=== PATIENT | female | born 1945 | race Caucasian/White ===

== ENCOUNTER → 2018-05-29 | Outpatient (CLI) | payer MEDICARE ==
[~2018-05-29] MED LIST: ADAL40PEN; AZAT50 PO; BENTYL10 MG PO; CLOBETTC TOP; ERGO400 PO; FISH1000 PO; GABA400 PO; GEMF600 PO; LOPE2C PO; MULTI VITAMIN1 EACH PO; Metformin HCl1000 MG PO; Mobic15 MG PO; Naproxen250 MG PO; ONDA4ODT SL; PRED20 PO; Pravastatin Sod40 MG PO; Prinivil10 MG PO; SITA100T2 PO
== END | disposition home or self-care (01) ==
LOC: LAB SHORT 15:53 → PLD 15:53
DX: L60.2 Onychogryphosis (principal); B35.1 Tinea unguium
CPT/HCPCS: 88305; 88312

== ENCOUNTER → 2020-01-27 | Outpatient (CLI) | payer MEDICARE ==
[~2020-01-27] MED LIST changes: +HYDR1TAB94 PO; +STELARA90 MG/1 ML SQ
[2020-01-28 12:38] LABS: Percent Saturation 16.9 % (15.0-50.0)
== END | disposition home or self-care (01) ==
LOC: LAB 18:30
PROVIDERS: Internal Medicine Hematology & Oncology
DX: D72.829 Elevated white blood cell count, unspecified (principal); D50.9 Iron deficiency anemia, unspecified
CPT/HCPCS: 82728; 83540; 83550

== ENCOUNTER 2020-02-26 11:16 | Emergency (ER) | payer MEDICARE ==
[~2020-02-26] VITALS: Ht 167.6 cm; Wt 111.1 kg
[~2020-02-26 11:16] MED LIST changes: -HYDR1TAB94 PO; -STELARA90 MG/1 ML SQ
[2020-02-26 12:14] LABS: BASOPHILS ABSOLUTE AUTO 0.09 K/mm3 (0.00-0.23); BASOPHILS PERCENT AUTO 1 % (0-2); EOSINOPHILS ABSOLUTE AUTO 0.17 K/mm3 (0.00-0.68); EOSINOPHILS PERCENT AUTO 1 % (0-6); Hematocrit 41.5 % (33.0-51.0); Hemoglobin 13.2 g/dL (11.5-16.0); Mean Corpuscular HGB 29.7 pg (26.0-34.0); Mean Corpuscular HGB Conc 31.8 g/dL (31.5-36.5); Mean Corpuscular Volume 93 fL (80-100); Mean Platelet Volume 9.9 fL (9.1-12.4); Platelet Count 296 K/mm3 (150-400); RDW Coefficient Variation 14.5 % (11.7-14.2); RDW Standard Deviation 49.5 fL (35.1-46.3); Red Blood Cell Count 4.45 M/mm3 (3.80-5.20); White Blood Cell Count 19.95 K/mm3 (4.00-11.30)
[2020-02-26 12:16] LABS: IMMATURE GRAN ABSOLUTE AUTO 0.06 K/mm3 (0.00-0.10); IMMATURE GRAN PERCENT AUTO 0 % (0-1); LYMPHOCYTES ABSOLUTE AUTO 8.57 K/mm3 (0.84-5.20); LYMPHOCYTES PERCENT AUTO 43 % (21-46); MONOCYTES ABSOLUTE AUTO 1.43 K/mm3 (0.16-1.47); MONOCYTES PERCENT AUTO 7 % (4-13); NEUTROPHILS ABSOLUTE AUTO 9.63 K/mm3 (1.96-9.15); NEUTROPHILS PERCENT AUTO 48 % (41-73)
[2020-02-26] MEDS ORDERED: STELARA90 MG/1 ML SQ (12:20)
[2020-02-26 12:34] LABS: Alanine Aminotransfer (ALT/SGP 32 U/L (12-78); Albumin, Blood 3.3 g/dL (3.4-5.0); Albumin/Globulin Ratio 0.9 (0.8-1.8); Alk Phos 57 U/L (50-136); Anion Gap 8 mmol/L (6-16); Aspartate Aminotrans (AST/SGOT 18 U/L (12-37); Bilirubin, Total 0.3 mg/dL (0.1-1.0); Blood Urea Nitrogen 23 mg/dL (8-24); Bun/Creatinine Ratio 27.3 (12.0-20.0); CO2, Blood 26 mmol/L (21-32); Chloride, Blood 106 mmol/L (98-108); Creatinine, Blood 0.84 mg/dL (0.40-1.00); Globulin, Blood 3.8 g/dL (2.2-4.0); Glomerular Filtration Rate >60 (60-); Glucose, Blood 232 mg/dL (70-99); Potassium, Blood 3.9 mmol/L (3.5-5.5); Sodium, Blood 140 mmol/L (136-145); Total Protein, Blood 7.1 g/dL (6.4-8.2); Troponin I <0.015 ng/mL (0.000-0.040)
[2020-02-26 12:39] LABS: BASOPHILS PERCENT MAN 0 % (0-2); EOSINOPHILS ABSOLUTE MAN 0.19 K/mm3 (0.00-0.68); EOSINOPHILS PERCENT MAN 1 % (0-6); LYMPHOCYTES ABSOLUTE MAN 8.57 K/mm3 (0.84-5.20); LYMPHOCYTES PERCENT MAN 43 % (21-46); MONOCYTES ABSOLUTE MAN 1.39 K/mm3 (0.16-1.47); MONOCYTES PERCENT MAN 7 % (4-13); NEUTROPHILS ABSOLUTE MAN 9.77 K/mm3 (1.96-9.15); SEG NEUTROPHILS PERCENT MAN 49 % (41-73); TOTAL CELLS COUNTED 100
[2020-02-26] MEDS ORDERED: HYDR1TAB94 PO (15:01)
== END 2020-02-26 15:41 | disposition home or self-care (01) ==
LOC: ER 11:16
PROVIDERS: Physician Assistant
DX: S43.401A Unspecified sprain of right shoulder joint, initial encounter (principal); S93.502A Unspecified sprain of left great toe, initial encounter; Z79.52 Long term (current) use of systemic steroids; Z79.899 Other long term (current) drug therapy; Z79.84 Long term (current) use of oral hypoglycemic drugs
CPT/HCPCS: 36415; 73030; 73630; 80053; 84484; 85025; 93005; 93010; 99285-25; A9270

== ENCOUNTER 2020-10-22 10:19 | Day surgery (SDC) | payer MEDICARE ==
[~2020-10-22 10:19] MED LIST changes: +HYDR1TAB94 PO; +STELARA90 MG/1 ML SQ
== END 2020-10-22 23:13 | disposition home or self-care (01) ==
LOC: ORSCMMR 10:19
DX: Z53.9 Procedure and treatment not carried out, unspecified reason (principal)

== ENCOUNTER 2020-10-25 08:23 | Day surgery (SDC) | payer MEDICARE ==
[~2020-10-25] VITALS: Ht 167.6 cm; Wt 110.8 kg
--- NOTE | 2020-10-25 11:56 | NUR ---
10/25/20 1156 Naty Walker PT. PRESENTS TO OR WITH SOME SIGNIFICANT BRUISING TO INSIDE AND ANTERIOR RIGHT FOREARM AND BICEP
--- NOTE | 2020-10-25 13:52 | NUR ---
PT WITH DRESSING TO R SHOULDER D&I, ARM ALREADY IN A SLING. PT GIVEN SIPS OF ORANGE JUICE AND PO PAIN MEDICATIONS PROVIDED. PT REPOSITION IN BED FOR COMFORT.
--- NOTE | 2020-10-25 15:03 | NUR ---
Patient up to Ambulate independently. Gait steady. Discharge instructions reviewed with patient. Patient verbalizes understanding. Copy given to patient to take home. Discharged via wheelchair to private car for ride home.
== END 2020-10-25 14:55 | disposition home or self-care (01) ==
LOC: ORSCMMR 08:23
PROVIDERS: Orthopaedic Surgery
PROC: 0PSC04Z Reposition Right Humeral Head with Internal Fixation Device, Open Approach (ICD-10-PCS; principal; 2020-10-25 10:45)
DX: S42.211A Unspecified displaced fracture of surgical neck of right humerus, initial encounter for closed fracture (principal); I10 Essential (primary) hypertension; E78.5 Hyperlipidemia, unspecified; Z87.891 Personal history of nicotine dependence; E11.9 Type 2 diabetes mellitus without complications; E66.01 Morbid (severe) obesity due to excess calories; Z68.39 Body mass index [BMI] 39.0-39.9, adult; Z79.84 Long term (current) use of oral hypoglycemic drugs; Z79.899 Other long term (current) drug therapy; Z79.82 Long term (current) use of aspirin
CPT/HCPCS: 82947; A9270; C1713; C1769; J0171; J0690; J1100; J2405; J2704; J3010; J7120

== ENCOUNTER → 2021-12-22 | Outpatient (CLI) | payer MEDICARE ==
[~2021-12-22] MED LIST changes: +DICY20 PO
[2021-12-22 08:17] LABS: Source, Urine Clean Catch
[2021-12-22 12:14] LABS: Appearance, Urine Clear (Clear); Bilirubin, Urine Neg (Neg); Blood, Urine Neg (Neg); Color, Urine Yellow (P-Yellow); Glucose Qualitative, Urine Neg (Neg); Ketones, Urine Neg (Neg); Leukocyte Esterase, Urine Neg (Neg); Nitrite, Urine Neg (Neg); Protein, Urine Neg (Neg); Specific Gravity, Urine 1.015 (1.003-1.022); Urobilinogen, Urine NORM (Normal)
== END | disposition home or self-care (01) ==
LOC: LAB SHORT 08:10 → LAB FUT 09-29 15:30
PROVIDERS: Family Medicine
DX: Z91.89 Other specified personal risk factors, not elsewhere classified (principal)
CPT/HCPCS: 81003

== ENCOUNTER 2023-01-25 22:49 | Emergency (ER) | payer MEDICARE ==
[~2023-01-25] VITALS: Ht 167.6 cm; Wt 108.9 kg
[2023-01-26 02:09] LABS: BASOPHILS ABSOLUTE AUTO 0.06 K/mm3 (0.00-0.23); BASOPHILS PERCENT AUTO 0 % (0-2); EOSINOPHILS ABSOLUTE AUTO 0.02 K/mm3 (0.00-0.68); EOSINOPHILS PERCENT AUTO 0 % (0-6); Hematocrit 47.1 % (33.0-51.0); Hemoglobin 15.4 g/dL (11.5-16.0); IMMATURE GRAN ABSOLUTE AUTO 0.05 K/mm3 (0.00-0.10); IMMATURE GRAN PERCENT AUTO 0 % (0-1); LYMPHOCYTES ABSOLUTE AUTO 2.74 K/mm3 (0.84-5.20); LYMPHOCYTES PERCENT AUTO 20 % (21-46); MONOCYTES ABSOLUTE AUTO 1.36 K/mm3 (0.16-1.47); MONOCYTES PERCENT AUTO 10 % (4-13); Mean Corpuscular HGB 30.2 pg (26.0-34.0); Mean Corpuscular HGB Conc 32.7 g/dL (31.5-36.5); Mean Corpuscular Volume 92 fL (80-100); Mean Platelet Volume 10.1 fL (9.1-12.4); NEUTROPHILS PERCENT AUTO 69 % (41-73); Platelet Count 246 K/mm3 (150-400); RDW Coefficient Variation 14.4 % (11.7-14.2); RDW Standard Deviation 48.9 fL (35.1-46.3); White Blood Cell Count 13.53 K/mm3 (4.00-11.30)
[2023-01-26 02:14] LABS: Albumin, Blood 3.8 g/dL (3.4-5.0); Bilirubin, Total 0.4 mg/dL (0.1-1.0); Bun/Creatinine Ratio 16.8 (12.0-20.0); Creatinine, Blood 1.01 mg/dL (0.40-1.00); Globulin, Blood 3.7 g/dL (2.2-4.0); Potassium, Blood 4.6 mmol/L (3.5-5.5); Total Protein, Blood 7.5 g/dL (6.4-8.2)
[2023-01-26 03:41] LABS: Source, Urine Straight Cath
[2023-01-26 03:52] LABS: Bilirubin, Urine Neg (Neg); Blood, Urine 1+ (Neg); Glucose Qualitative, Urine 4+ (Neg); Ketones, Urine 1+ (Neg); Leukocyte Esterase, Urine Neg (Neg); Nitrite, Urine Pos (Neg); Protein, Urine Neg (Neg); Urobilinogen, Urine NORM (Normal)
[2023-01-26 04:24] LABS: Appearance, Urine Hazy (Clear); Color, Urine Yellow (P-Yellow)
[2023-01-26 04:25] LABS: Bacteria Many /hpf; Red Blood Cells, Urine 0-2 /hpf (0-2); Squamous Epithelial Cells Few /hpf (Few); White Blood Cells, Urine 0-2 /hpf (0-5)
[2023-01-26 05:00] VITALS: BP 108/72
[2023-01-26 05:17] LABS: Magnesium, Blood 1.8 mg/dL (1.6-2.4); Phosphorus, Blood 2.8 mg/dL (2.5-4.9); Thyroid Stimulating Hormone 0.928 uIU/mL (0.360-4.800)
[2023-01-26 05:49] LABS: Influenza A, PCR NEGATIVE (NEGATIVE); Influenza B, PCR NEGATIVE (NEGATIVE); Resp Syncytial Virus, PCR NEGATIVE (NEGATIVE)
[2023-01-26 05:56] LABS: SARS-Cov-2 (COVID-19) PCR, MMC POSITIVE (NEGATIVE)
[2023-01-26] MEDS ORDERED: ACET500 PO (06:07)
== END 2023-01-26 06:39 | disposition home or self-care (01) ==
LOC: ER 22:49
PROVIDERS: Emergency Medicine
DX: U07.1 COVID-19 (principal); E86.0 Dehydration; I10 Essential (primary) hypertension; D63.8 Anemia in other chronic diseases classified elsewhere; E11.40 Type 2 diabetes mellitus with diabetic neuropathy, unspecified; Z79.84 Long term (current) use of oral hypoglycemic drugs; Z79.899 Other long term (current) drug therapy; Z88.5 Allergy status to narcotic agent; W06.XXXA Fall from bed, initial encounter; Y92.003 Bedroom of unspecified non-institutional (private) residence as the place of occurrence of the external cause
CPT/HCPCS: 0241U; 80053; 81001; 83735; 84100; 84443; 85025; 87077; 87086; 87186; 93005; 93010; 99284-25; J7030

== ENCOUNTER → 2024-01-18 | Outpatient (CLI) | payer MEDICARE ==
[~2024-01-18] MED LIST changes: +ACET500 PO
[2024-01-18 16:35] LABS: Alanine Aminotransfer (ALT/SGP 29 U/L (12-78); Albumin, Blood 3.5 g/dL (3.4-5.0); Alk Phos 103 U/L (50-136); Anion Gap 11 mmol/L (3-11); Aspartate Aminotrans (AST/SGOT 13 U/L (12-37); Bilirubin, Total 0.3 mg/dL (0.1-1.0); Blood Urea Nitrogen 20 mg/dL (8-24); Bun/Creatinine Ratio 19.2 (12.0-20.0); CHOL/HDL RATIO 1.8; CO2, Blood 26 mmol/L (21-32); Chloride, Blood 110 mmol/L (98-108); Cholesterol 92 mg/dL (50-200); Creatinine, Blood 1.04 mg/dL (0.40-1.00); Globulin, Blood 3.4 g/dL (2.2-4.0); Glomerular Filtration Rate 55 (60-); Glucose, Blood 228 mg/dL (70-99); HDL Cholesterol 51 mg/dL (>39); LDL/HDL RATIO 0.1; Low Density Lipoprotein Chol 5 mg/dL (0-110); Potassium, Blood 4.7 mmol/L (3.5-5.5); Sodium, Blood 142 mmol/L (136-145); Total Protein, Blood 6.9 g/dL (6.4-8.2); Triglycerides 182 mg/dL (30-160); Very Low Density Lipoprot Chol 36 mg/dL (6-32)
[2024-01-18 16:42] LABS: BASOPHILS PERCENT AUTO 1 % (0-2); EOSINOPHILS ABSOLUTE AUTO 3.54 K/mm3 (0.00-0.68); EOSINOPHILS PERCENT AUTO 19 % (0-6); IMMATURE GRAN ABSOLUTE AUTO 0.04 K/mm3 (0.00-0.10); IMMATURE GRAN PERCENT AUTO 0 % (0-1); LYMPHOCYTES ABSOLUTE AUTO 7.38 K/mm3 (0.84-5.20); LYMPHOCYTES PERCENT AUTO 40 % (21-46); MONOCYTES ABSOLUTE AUTO 0.86 K/mm3 (0.16-1.47); MONOCYTES PERCENT AUTO 5 % (4-13); Mean Corpuscular HGB 30.6 pg (26.0-34.0); Mean Corpuscular HGB Conc 33.3 g/dL (31.5-36.5); Mean Corpuscular Volume 92 fL (80-100); Mean Platelet Volume 10.5 fL (9.1-12.4); NEUTROPHILS ABSOLUTE AUTO 6.77 K/mm3 (1.96-9.15); NEUTROPHILS PERCENT AUTO 36 % (41-73); Platelet Count 281 K/mm3 (150-400); RDW Coefficient Variation 13.9 % (11.7-14.2); RDW Standard Deviation 47.2 fL (35.1-46.3); White Blood Cell Count 18.69 K/mm3 (4.00-11.30)
[2024-01-18 17:09] LABS: Microalb/Creat Ratio UR, Rand 11.733 mg/g (0.000-30.000); Microalbumin, Random Urine 5.28 mg/L (0.000-20.000)
== END ==
LOC: LAB 15:12 → LAB SHORT 15:12
PROVIDERS: Family Medicine
DX: E11.65 Type 2 diabetes mellitus with hyperglycemia (principal); E78.2 Mixed hyperlipidemia; I12.9 Hypertensive chronic kidney disease with stage 1 through stage 4 chronic kidney disease, or unspecified chronic kidney disease
CPT/HCPCS: 80053; 80061; 82043; 82570; 83036; 85025

== ENCOUNTER 2024-02-27 09:01 | Inpatient (IN) | payer OTHER, MEDICARE ==
[~2024-02-27] VITALS: Ht 167.6 cm; Wt 102.4 kg
[2024-02-27] MEDS ORDERED: Prednisone10 MG (09:24)
[2024-02-27] MEDS ORDERED: ATOR20 PO (09:26)
[2024-02-27] MEDS ORDERED: JARDIANCE10 MG PO (09:27)
[2024-02-27] MEDS ORDERED: INVOKANA100 MG PO (09:28)
[2024-02-27] MEDS ORDERED: Lactated Ringer's 1,000 ML IV ONE ×2 (09:45→09:50)
[2024-02-27 10:07] LABS: Hematocrit 45.2 % (33.0-51.0); Mean Corpuscular HGB 30.9 pg (26.0-34.0); Mean Corpuscular HGB Conc 33.2 g/dL (31.5-36.5); Mean Corpuscular Volume 93 fL (80-100); Mean Platelet Volume 9.8 fL (9.1-12.4); Platelet Count 233 K/mm3 (150-400); RDW Coefficient Variation 14.3 % (11.7-14.2); Red Blood Cell Count 4.85 M/mm3 (3.80-5.20); White Blood Cell Count 17.28 K/mm3 (4.00-11.30)
[2024-02-27 10:28] LABS: BASOPHILS PERCENT MAN 0 % (0-2); EOSINOPHILS PERCENT MAN 0 % (0-6); LYMPHOCYTES ABSOLUTE MAN 3.62 K/mm3 (0.84-5.20); LYMPHOCYTES PERCENT MAN 21 % (21-46); MONOCYTES ABSOLUTE MAN 1.03 K/mm3 (0.16-1.47); MONOCYTES PERCENT MAN 6 % (4-13); NEUTROPHILS ABSOLUTE MAN 12.61 K/mm3 (1.96-9.15); SEG NEUTROPHILS PERCENT MAN 73 % (41-73); TOTAL CELLS COUNTED 100
[2024-02-27 10:32] LABS: Albumin, Blood 3.6 g/dL (3.4-5.0); Albumin/Globulin Ratio 0.9 (0.8-1.8); Bilirubin, Total 0.6 mg/dL (0.1-1.0); Bun/Creatinine Ratio 17.6 (12.0-20.0); Calcium, Blood 9.4 mg/dL (8.5-10.1); Creatinine, Blood 1.02 mg/dL (0.40-1.00); Potassium, Blood 4.6 mmol/L (3.5-5.5); Total Protein, Blood 7.6 g/dL (6.4-8.2)
[2024-02-27 12:23] LABS: CORONAVIRUS COVID-19 AG Negative (NEGATIVE); INFLUENZA A AG Negative (NEGATIVE); INFLUENZA B AG Negative (NEGATIVE)
[2024-02-27 12:34] LABS: Source, Urine Straight Cath
[2024-02-27 12:38] LABS: Appearance, Urine Hazy (Clear); Bilirubin, Urine Neg (Neg); Blood, Urine 2+ (Neg); Color, Urine Yellow (P-Yellow); Glucose Qualitative, Urine 4+ (Neg); Ketones, Urine Neg (Neg); Leukocyte Esterase, Urine 1+ (Neg); Nitrite, Urine Neg (Neg); Protein, Urine Neg (Neg); Urobilinogen, Urine NORM (Normal)
[2024-02-27 12:55] LABS: Bacteria Many /hpf; Squamous Epithelial Cells Few /hpf (Few); White Blood Cells, Urine 50-100 /hpf (0-5)
[2024-02-27] MEDS ORDERED: CefTRIAXone Sodium 1,000 MG in NS 50 ML IV ONE (13:10)
[2024-02-27] MEDS ORDERED: NS 1,000 ML IV SCH ×3 (13:20→23:35)
[2024-02-27] MEDS ORDERED: FLU VACC TS2024-25(6MOS UP)/PF 45 MCG/0.5 ML SYRINGE IM SCH (14:40)
[2024-02-27] MEDS ORDERED: Ondansetron HCl 2 MG / ML 2ML Vial IV PRN (14:40)
[2024-02-27] MEDS ORDERED: OxyCODONE HCL 5 MG TAB PO PRN (14:40)
[2024-02-27] MEDS ORDERED: Gabapentin 100 MG Cap PO SCH (15:00)
[2024-02-27] MEDS ORDERED: Empagliflozin 10 MG TAB PO SCH (15:00)
[2024-02-27] MEDS ORDERED: Lisinopril 10 MG Tab PO SCH (15:00)
[2024-02-27] MEDS ORDERED: Insulin Regular 100 UNIT/ML 10ML Vial SC SCH (16:30)
[2024-02-27 18:44] VITALS: BP 176/76
--- NOTE | 2024-02-27 19:37 | NUR ---
ADMISSION: REPORT RECEIVED FORM ED RN. PT TO UNIT AT 1830. A/O, NOTED HTN AND FEVER, WILL MAKE CEFERINO RN AWARE. SENSATION IS INTACT TO R FOOT, WIGGLES TOES, PEDAL PULSE +2. PT ABLE TO TURN AND HELPED ONTO BEDPAN AND VOIDED. PT IS AWARE OF NWB STATUS OF R LEG. PT ORIENTED TO ROOM, AND BEDSIDE REPORT GIVEN TO CEFERINO CHRISTINE RN. CALL LIGHT IN REACH
[2024-02-27] MEDS ORDERED: BENADRYL25 MG (19:54)
[2024-02-27] MEDS ORDERED: CALCIUM 600-D31 EAC2 (19:58)
[2024-02-27] MEDS ORDERED: ONE DAILY WOME1 EAC2 PO (19:59)
[2024-02-27] MEDS ORDERED: Docusate Sodium 100 MG Cap PO SCH (21:00)
[2024-02-27] MEDS ORDERED: Lactobacil 2-S.Thermo-Bifido 1 1 Cap PO SCH (21:00)
[2024-02-27] MEDS ORDERED: Atorvastatin 10 MG Tab PO SCH (21:00)
[2024-02-27] MEDS ORDERED: Sennosides 8.6 MG Tab PO SCH (21:00)
[2024-02-27] MEDS ORDERED: Acetaminophen 500 MG Tab PO PRN (23:35)
--- NOTE | 2024-02-28 04:13 | NUR ---
SHIFT SUMMARY; AFTER ADMISSION, PATIENT WAS ABLE TO SLEEP IN LONG INTERVALS, DID NOT HAVE A LOT OF PAIN IN ANKLE. SHE ALMOST SLIPPED OFF THE BED, WHEN HER LEG BECAME CLOSE TO THE EDGE OF THE BED. BED ALARM NOW ON. TELE ST @ 88. NPO AFTER MIDNIGHT. WAS FEBRILE, HOSPITALIST CONTACTED OR TYLENOL ORDER. PUREWICK WORKING WELL TO MANAGE URINE. IVF NS/100ML/HR ALL NIGHT.
[2024-02-28 04:54] LABS: Hematocrit 39.3 % (33.0-51.0); Hemoglobin 13.1 g/dL (11.5-16.0); Mean Corpuscular HGB 30.5 pg (26.0-34.0); Mean Corpuscular HGB Conc 33.3 g/dL (31.5-36.5); Mean Corpuscular Volume 91 fL (80-100); Mean Platelet Volume 9.8 fL (9.1-12.4); Platelet Count 233 K/mm3 (150-400); RDW Coefficient Variation 14.3 % (11.7-14.2); White Blood Cell Count 15.64 K/mm3 (4.00-11.30)
[2024-02-28 05:15] LABS: BAND PERCENT MAN 2 % (0-8); BASOPHILS PERCENT MAN 0 % (0-2); EOSINOPHILS PERCENT MAN 0 % (0-6); LYMPHOCYTES % ATYPICAL MANUAL 3 % (0-0); LYMPHOCYTES ABSOLUTE MAN 6.25 K/mm3 (0.84-5.20); LYMPHOCYTES PERCENT MAN 37 % (21-46); MONOCYTES ABSOLUTE MAN 0.62 K/mm3 (0.16-1.47); MONOCYTES PERCENT MAN 4 % (4-13); NEUTROPHILS ABSOLUTE MAN 8.75 K/mm3 (1.96-9.15); SEG NEUTROPHILS PERCENT MAN 54 % (41-73); TOTAL CELLS COUNTED 100
[2024-02-28 05:17] LABS: Bun/Creatinine Ratio 18.3 (12.0-20.0); Calcium, Blood 8.6 mg/dL (8.5-10.1); Creatinine, Blood 0.99 mg/dL (0.40-1.00); Potassium, Blood 3.8 mmol/L (3.5-5.5)
[2024-02-28 06:20] VITALS: BP 151/75
[2024-02-28 07:26] VITALS: BP 184/80
[2024-02-28] MEDS ORDERED: Enoxaparin 40 MG/0.4 ML SYR SC SCH (09:00)
[2024-02-28] MEDS ORDERED: CefTRIAXone Sodium 1,000 MG in NS 100 ML IV SCH (09:00)
[2024-02-28] MEDS ORDERED: Loratadine 10 MG Tab PO SCH (09:00)
[2024-02-28] MEDS ORDERED: Cholecalciferol 1000 Unit Tablet (=25MCG) PO SCH (09:00)
[2024-02-28 14:03] VITALS: BP 160/79
--- NOTE | 2024-02-28 15:46 | NUR ---
SHIFT SUMMARY NO ACUTE CHANGES TODAY. DR. SCHROEDER REPORTS R ANKLE IS NON SURGICAL AND PLANS TO PLACE A NEW SPLINT TO THE ANKLE THIS AFTERNOON. PT IS NWB AND IS A 2 PERSON MOD ASSIST TO THE BSC/CHAIR. DENIES PAIN TO R ANKLE UNLESS SHE ACCIDENTALLY BEARS WEIGHT TO IT. IVF + ABX PER ORDERS FOR UTI. YADY CONSISTENT CARB DIET. VSS. PLAN TO TRANSFER TO ROOM 336. REPORT GIVEN TO RECEIVING TIN OROSCO.
[2024-02-28] MEDS ORDERED: Azithromycin 250 MG Tab PO SCH (17:00)
[2024-02-28] MEDS ORDERED: MetFORMIN HCl 500 mg PO SCH (17:00)
[2024-02-28 17:15] VITALS: BP 129/50
--- NOTE | 2024-02-28 18:34 | NUR ---
SHIFT SUMMARY PT A&OX4. PT TRANSFERED FROM SURG FLOOR. PT IS NON WEIGHT BEARING ON R FOOT DUE TO FRACTURE. PT IS A STAND PIVOT WITH FWW AND GB TO [facility] [place] SPLINT. C/D/I. DR. SCHROEDER CAME BY THIS EVENING AND DID A DRESSING CHANGE. PT ON ROOM AIR. PT ON TELE, AND IS SINUS RYTHYM AT 87 BPM. PT IS ON A CORECTION SCALE FOR INSULIN, METFORMIN STARTED TODAY. PT ORIENTED TO ROOM FALL PRECAUTIONS AND CALL LIGHT. VSS. PT ALSO RECEIVING ANTIBIOTICS. FLUIDS RUNNING AT 100ML/HR. PT REPORTS HEADACHE PAIN. MANAGED PER EMAR. PT EATS ADEQUATE, BED IN LOWEST POSITION. CALL LIGHT IN REACH.
[2024-02-28 19:50] VITALS: BP 147/70
[2024-02-29 03:19] VITALS: BP 151/61
[2024-02-29 06:10] LABS: Hematocrit 37.9 % (33.0-51.0); Hemoglobin 12.6 g/dL (11.5-16.0); Mean Corpuscular HGB 30.5 pg (26.0-34.0); Mean Corpuscular HGB Conc 33.2 g/dL (31.5-36.5); Mean Corpuscular Volume 92 fL (80-100); Platelet Count 215 K/mm3 (150-400); RDW Coefficient Variation 14.1 % (11.7-14.2); RDW Standard Deviation 48.3 fL (35.1-46.3); Red Blood Cell Count 4.13 M/mm3 (3.80-5.20); White Blood Cell Count 12.92 K/mm3 (4.00-11.30)
[2024-02-29 06:29] LABS: Bun/Creatinine Ratio 15.4 (12.0-20.0); Calcium, Blood 8.5 mg/dL (8.5-10.1); Creatinine, Blood 1.04 mg/dL (0.40-1.00); Potassium, Blood 4.1 mmol/L (3.5-5.5)
[2024-02-29 07:13] VITALS: BP 137/73
[2024-02-29] MEDS ORDERED: Acetaminophen 325 MG TABLET PO PRN (11:25)
--- NOTE | 2024-02-29 18:39 | NUR ---
SHIFT SUMMARY PT A&OX4. PT HAS R ANKLE FRACTURE. PT IS NON WEIGHT BEARING ON R FOOT DUE TO FRACTURE. PT IS A STAND PIVOT WITH FWW AND GB TO BS. IN SPLINT. C/D/I. PT REPORTS NO PAIN BUT ASKED FOR 2 TYLENOL TO BE AVAILABLE NEEDED, DR. RICH INCREASED TYLENOL. PT ON ROOM AIR. PT ON TELE. PT REPORTS NO CHEST PAIN. VSS. PT ON CORRECTION SCALE FOR INSULIN. PT RECEIVING ANTIBIOTICS. MICRO CAME BACK FOR [place] IN URINE, DR. RICH NOTIFIED. PT HAS REDNESS ON R UNDER BREAST. DR. RICH KNOWS AND ORDERED POWDER. PLAN IS FOR PT TO GO TO [facility] TOMORROW FOR REHAB. NS RUNNING AT 100ML/HR. BED IN LOWEST POSITION, CALL LIGHT IN REACH. PT WAS IN CHAIR 2 HRS DURING SHIFT. PT EATS ADEQUATE.
[2024-02-29 19:54] VITALS: BP 152/69
[2024-02-29] MEDS ORDERED: Miconazole Nitrate 2% 85 GM PWD TOP SCH (21:00)
[2024-03-01 02:52] VITALS: BP 153/82
--- NOTE | 2024-03-01 05:00 | NUR ---
SHIFT SUMMARY: Pt is admitted for right ankle FX and is a limited code. Is alert and able to make needs known. ADLs have been 1p. Pain has been managed with PRN medication. Iv to right wrist running NS at 100. Oleg reports sinus in the 80s.
[2024-03-01 05:41] LABS: Hematocrit 40.4 % (33.0-51.0); Hemoglobin 13.3 g/dL (11.5-16.0); Mean Corpuscular HGB 30.2 pg (26.0-34.0); Mean Corpuscular HGB Conc 32.9 g/dL (31.5-36.5); Mean Corpuscular Volume 92 fL (80-100); Mean Platelet Volume 9.4 fL (9.1-12.4); Platelet Count 238 K/mm3 (150-400); RDW Coefficient Variation 14.1 % (11.7-14.2); RDW Standard Deviation 48.2 fL (35.1-46.3); White Blood Cell Count 12.61 K/mm3 (4.00-11.30)
[2024-03-01 06:02] LABS: Bun/Creatinine Ratio 20.1 (12.0-20.0); Calcium, Blood 8.8 mg/dL (8.5-10.1); Creatinine, Blood 0.85 mg/dL (0.40-1.00); Potassium, Blood 4.2 mmol/L (3.5-5.5)
[2024-03-01 07:26] VITALS: BP 172/81
--- NOTE | 2024-03-01 09:00 | NUR ---
pt laying in bed, awake a/ox4, pleasant and cooperative with care, follows commands well, states she's going to rehab today, lungs are clear t/o, on r/a, no cough noted, hrr, no edema noted, ppp+2, cap refill <3 sec, vs stable, afebrile, piv to rfa site is clear and patent, bt x4 abd flat soft nontender, voids without diff, skin c/w/d, maew, except right leg is in soft cast, nonweightbearing, secondary to ankle fx, melita, call light in reach.
[2024-03-01] MEDS ORDERED: ACET325 PO (10:43)
[2024-03-01] MEDS ORDERED: DOCU100 PO (10:45)
[2024-03-01] MEDS ORDERED: AZIT500 PO (10:45)
[2024-03-01] MEDS ORDERED: LORA10ER PO (10:46)
[2024-03-01] MEDS ORDERED: SENNA LAXATIVE8.6 MG PO (10:49)
[2024-03-01] MEDS ORDERED: OXAYDO5 M1 PO (10:49)
[2024-03-01] MEDS ORDERED: VISBIOME 112.51 EACH PO (10:50)
[2024-03-01] MEDS ORDERED: MICONAZOLE NIT130 GM (10:54)
--- NOTE | 2024-03-01 11:16 | NUR ---
pt has been discharged to [facility], called report at 10:48, iv removed intact, transport here to take her via wheelchair, left with all her belongings.
== END 2024-03-01 11:17 | DRG 871 ==
LOC: ER 09:01 → SURS 14:36 → MEDS 14:36 → SURS 18:40 → MEDS 02-28 15:57
PROVIDERS: Emergency Medicine; Internal Medicine; ADMIT Internal Medicine
DX: A41.51 Sepsis due to Escherichia coli [E. coli] (principal); J18.9 Pneumonia, unspecified organism; N39.0 Urinary tract infection, site not specified; K50.90 Crohn's disease, unspecified, without complications; E87.20 Acidosis, unspecified; Z66 Do not resuscitate; S82.831A Other fracture of upper and lower end of right fibula, initial encounter for closed fracture; R65.20 Severe sepsis without septic shock; E11.40 Type 2 diabetes mellitus with diabetic neuropathy, unspecified; E11.22 Type 2 diabetes mellitus with diabetic chronic kidney disease; I12.9 Hypertensive chronic kidney disease with stage 1 through stage 4 chronic kidney disease, or unspecified chronic kidney disease; N18.31 Chronic kidney disease, stage 3a; M19.90 Unspecified osteoarthritis, unspecified site; D63.1 Anemia in chronic kidney disease; E11.42 Type 2 diabetes mellitus with diabetic polyneuropathy; Z90.710 Acquired absence of both cervix and uterus; Z98.41 Cataract extraction status, right eye; Z87.891 Personal history of nicotine dependence; Z98.890 Other specified postprocedural states; Z91.048 Other nonmedicinal substance allergy status; Z88.5 Allergy status to narcotic agent; Z79.84 Long term (current) use of oral hypoglycemic drugs; Z79.899 Other long term (current) drug therapy; Z79.82 Long term (current) use of aspirin; W01.0XXA Fall on same level from slipping, tripping and stumbling without subsequent striking against object, initial encounter
CPT/HCPCS: 36415; 71046; 73562-RT; 73610; 73630; 80048; 80053; 81001; 82947; 83605; 85025; 85027; 87040; 87077; 87086; 87186; 87428-QW; 93005; 93010; 94760; 96361; 96365; 97110; 97116; 97162; 97165; 97530; 97535; 99285-25; A9270; J0696; J1650; J1815; J7030; J7120

== ENCOUNTER → 2024-05-29 | Outpatient (CLI) | payer MEDICARE ==
[~2024-05-29] MED LIST changes: +ACET325 PO; +ATOR20 PO; +AZIT500 PO; +BENADRYL25 MG; +CALCIUM 600-D31 EAC2; +DOCU100 PO; +INVOKANA100 MG PO; +JARDIANCE10 MG PO; +LORA10ER PO; +MICONAZOLE NIT130 GM; +ONE DAILY WOME1 EAC2 PO; +OXAYDO5 M1 PO; +Prednisone10 MG; +SENNA LAXATIVE8.6 MG PO; +VISBIOME 112.51 EACH PO
[2024-05-29 16:08] LABS: Hematocrit 46.7 % (33.0-51.0); Mean Corpuscular HGB 30.1 pg (26.0-34.0); Mean Corpuscular HGB Conc 32.1 g/dL (31.5-36.5); Mean Corpuscular Volume 94 fL (80-100); Platelet Count 307 K/mm3 (150-400); RDW Coefficient Variation 13.7 % (11.7-14.2); RDW Standard Deviation 47.3 fL (35.1-46.3); Red Blood Cell Count 4.99 M/mm3 (3.80-5.20); White Blood Cell Count 11.99 K/mm3 (4.00-11.30)
[2024-05-29 16:28] LABS: BASOPHILS PERCENT MAN 0 % (0-2); EOSINOPHILS ABSOLUTE MAN 0.23 K/mm3 (0.00-0.68); EOSINOPHILS PERCENT MAN 2 % (0-6); LYMPHOCYTES ABSOLUTE MAN 7.43 K/mm3 (0.84-5.20); LYMPHOCYTES PERCENT MAN 62 % (21-46); MONOCYTES ABSOLUTE MAN 0.47 K/mm3 (0.16-1.47); MONOCYTES PERCENT MAN 4 % (4-13); NEUTROPHILS ABSOLUTE MAN 3.83 K/mm3 (1.96-9.15); SEG NEUTROPHILS PERCENT MAN 32 % (41-73); TOTAL CELLS COUNTED 100
== END ==
LOC: LAB 15:05 → LAB SHORT 15:05
PROVIDERS: Family Medicine
DX: D72.829 Elevated white blood cell count, unspecified (principal)
CPT/HCPCS: 85025

== ENCOUNTER 2024-10-08 12:18 | Emergency (ER) | payer OTHER, MEDICARE ==
[~2024-10-08] VITALS: Ht 167.6 cm; Wt 90.7 kg
[2024-10-08 12:41] VITALS: BP 189/55
== END 2024-10-08 16:21 | disposition home or self-care (01) ==
LOC: ER 12:18
DX: S01.01XA Laceration without foreign body of scalp, initial encounter (principal); I10 Essential (primary) hypertension; E11.40 Type 2 diabetes mellitus with diabetic neuropathy, unspecified; K50.90 Crohn's disease, unspecified, without complications; Z88.5 Allergy status to narcotic agent; Z91.048 Other nonmedicinal substance allergy status; Z79.52 Long term (current) use of systemic steroids; Z79.84 Long term (current) use of oral hypoglycemic drugs; Z79.899 Other long term (current) drug therapy; Z59.89 Other problems related to housing and economic circumstances; W01.0XXA Fall on same level from slipping, tripping and stumbling without subsequent striking against object, initial encounter
CPT/HCPCS: 70450; 99283-25

== ENCOUNTER 2024-10-20 09:00 | Emergency (ER) | payer MEDICARE ==
[~2024-10-20] VITALS: Ht 167.6 cm; Wt 90.7 kg
[2024-10-20 09:27] VITALS: BP 158/86
== END 2024-10-20 11:15 | disposition home or self-care (01) ==
LOC: ER 09:00
DX: S00.03XA Contusion of scalp, initial encounter (principal); I10 Essential (primary) hypertension; E11.40 Type 2 diabetes mellitus with diabetic neuropathy, unspecified; K50.90 Crohn's disease, unspecified, without complications; Z88.5 Allergy status to narcotic agent; Z91.048 Other nonmedicinal substance allergy status; Z79.52 Long term (current) use of systemic steroids; Z79.84 Long term (current) use of oral hypoglycemic drugs; Z79.899 Other long term (current) drug therapy; W19.XXXA Unspecified fall, initial encounter
CPT/HCPCS: 99283

== ENCOUNTER → 2025-02-11 | Outpatient (CLI) | payer MEDICARE ==
[2025-02-11 13:30] LABS: Hematocrit 48.2 % (33.0-51.0); Hemoglobin 15.8 g/dL (11.5-16.0); Mean Corpuscular HGB Conc 32.8 g/dL (31.5-36.5); Mean Corpuscular Volume 94 fL (80-100); NRBC ABSOLUTE 0.00 K/mm3 (0.00-0.02); NRBC Auto 0.0 /100 WBC (0.0-0.2); Platelet Count 284 K/mm3 (150-400); RDW Coefficient Variation 14.1 % (11.7-14.2); RDW Standard Deviation 48.7 fL (35.1-46.3)
[2025-02-11 14:53] LABS: BASOPHILS ABSOLUTE MAN 0.00 K/mm3 (0.00-0.23); BASOPHILS PERCENT MAN 0 % (0-2); EOSINOPHILS ABSOLUTE MAN 0.39 K/mm3 (0.00-0.68); EOSINOPHILS PERCENT MAN 3 % (0-6); LYMPHOCYTES ABSOLUTE MAN 6.51 K/mm3 (0.84-5.20); LYMPHOCYTES PERCENT MAN 49 % (21-46); MONOCYTES ABSOLUTE MAN 0.79 K/mm3 (0.16-1.47); MONOCYTES PERCENT MAN 6 % (4-13); NEUTROPHILS ABSOLUTE MAN 5.58 K/mm3 (1.96-9.15); SEG NEUTROPHILS PERCENT MAN 42 % (41-73)
[2025-02-11 15:46] LABS: Alanine Aminotransfer (ALT/SGP 32 U/L (12-78); Albumin, Blood 3.8 g/dL (3.4-5.0); Albumin/Globulin Ratio 1.1 (0.8-1.8); Anion Gap 11 mmol/L (3-11); Aspartate Aminotrans (AST/SGOT 18 U/L (12-37); Bilirubin, Total 0.5 mg/dL (0.1-1.0); Blood Urea Nitrogen 24 mg/dL (8-24); CHOL/HDL RATIO 2.6; CO2, Blood 26 mmol/L (21-32); Calcium, Blood 9.7 mg/dL (8.5-10.1); Chloride, Blood 107 mmol/L (98-108); Cholesterol 128 mg/dL (50-200); Creatinine, Blood 1.00 mg/dL (0.40-1.00); Globulin, Blood 3.4 g/dL (2.2-4.0); Glucose, Blood 172 mg/dL (70-99); HDL Cholesterol 50 mg/dL (>39); LDL/HDL RATIO 0.5; Low Density Lipoprotein Chol 26 mg/dL (0-110); Potassium, Blood 4.2 mmol/L (3.5-5.5); Sodium, Blood 140 mmol/L (136-145); Total Protein, Blood 7.2 g/dL (6.4-8.2); Triglycerides 262 mg/dL (30-160); Very Low Density Lipoprot Chol 52 mg/dL (6-32)
== END | disposition home or self-care (01) ==
LOC: LAB SHORT 09:55 → LAB 09:55
PROVIDERS: Family Medicine
DX: I12.9 Hypertensive chronic kidney disease with stage 1 through stage 4 chronic kidney disease, or unspecified chronic kidney disease (principal); N18.9 Chronic kidney disease, unspecified; E78.2 Mixed hyperlipidemia
CPT/HCPCS: 80053; 80061; 85025